=== PATIENT | female | born 1940 | race Caucasian/White ===

== ENCOUNTER 2017-12-18 10:07 | Outpatient (CLI) | payer OTHER | END 2017-12-18 17:00 | disposition home or self-care (01) | LOC: MRI 10:07 | DX: M48.02 Spinal stenosis, cervical region (principal); M48.061 Spinal stenosis, lumbar region without neurogenic claudication; M51.27 Other intervertebral disc displacement, lumbosacral region; M51.04 Intervertebral disc disorders with myelopathy, thoracic region | CPT/HCPCS: 72157; 72158; A9579; 72146; 72148 ==